=== PATIENT | female | born 1985 | race Two or more races ===

== ENCOUNTER 2016-05-26 20:42 | Emergency (ER) | payer MEDICARE, OTHER ==
[~2016-05-26] VITALS: Ht 165.1 cm; Wt 103.9 kg
--- NOTE | 2016-05-26 20:47 | NUR ---
Called for triage, no answer.
[2016-05-26 20:54] VITALS: BP 146/79
== END 2016-05-26 21:51 | disposition home or self-care (01) ==
LOC: ER 20:42
DX: J02.9 Acute pharyngitis, unspecified (principal); N94.89 Other specified conditions associated with female genital organs and menstrual cycle; F17.200 Nicotine dependence, unspecified, uncomplicated
CPT/HCPCS: 99281; A4606; Z7502; Z7610

== ENCOUNTER 2016-10-10 19:35 | Emergency (ER) | payer MEDICARE, OTHER ==
[~2016-10-10] VITALS: Ht 165.1 cm; Wt 57.6 kg
[2016-10-10 19:37] VITALS: BP 121/66
--- NOTE | 2016-10-10 19:49 | NUR ---
called [facility] dispatch to make report. cupola operator insulation #[id number] took report.
--- NOTE | 2016-10-10 20:10 | NUR ---
DR. LOPEZ AT BEDSIDE FOR EVAL.
--- NOTE | 2016-10-10 20:31 | NUR ---
Patient discharged to home in stable condition. Written and verbal after care instructions given. Patient verbalizes understanding of instruction. pt ambulatory with a steady gait.
== END 2016-10-10 20:32 | disposition home or self-care (01) ==
LOC: ER 19:37
DX: O9A.212 Injury, poisoning and certain other consequences of external causes complicating pregnancy, second trimester (principal); S40.812A Abrasion of left upper arm, initial encounter; F17.200 Nicotine dependence, unspecified, uncomplicated; Z3A.18 18 weeks gestation of pregnancy; Y04.0XXA Assault by unarmed brawl or fight, initial encounter; Y93.89 Activity, other specified; Y92.89 Other specified places as the place of occurrence of the external cause; Y99.9 Unspecified external cause status
CPT/HCPCS: 99284; A4606; Z7610

== ENCOUNTER 2016-12-27 10:03 | Emergency (ER) | payer MEDICARE, OTHER ==
[~2016-12-27] VITALS: Ht 165.1 cm; Wt 83.9 kg
[2016-12-27 11:52] VITALS: BP 134/77
== END 2016-12-27 11:53 | disposition home or self-care (01) ==
LOC: ER 10:09
DX: O26.893 Other specified pregnancy related conditions, third trimester (principal); J03.90 Acute tonsillitis, unspecified; F17.200 Nicotine dependence, unspecified, uncomplicated; Z3A.28 28 weeks gestation of pregnancy
CPT/HCPCS: 99283; A4606; Z7610

== ENCOUNTER 2017-03-21 16:53 | Emergency (ER) | payer MEDICARE, OTHER ==
[~2017-03-21] VITALS: Ht 165.1 cm; Wt 104.3 kg
[2017-03-21 16:57] VITALS: BP 163/102
== END 2017-03-21 17:36 | disposition home or self-care (01) ==
LOC: ER 16:56
DX: B34.9 Viral infection, unspecified (principal); F17.200 Nicotine dependence, unspecified, uncomplicated
CPT/HCPCS: 99281; A4606; Z7502; Z7610

== ENCOUNTER 2017-10-06 12:54 | Emergency (ER) | payer MEDICARE, OTHER ==
[~2017-10-06] VITALS: Ht 165.1 cm; Wt 103.0 kg
[2017-10-06 12:58] VITALS: BP 143/80
[2017-10-06] MEDS ORDERED: ACETAMINOPHEN ES 500 MG TABLET ONE (13:55)
[2017-10-06] MEDS: ACETAMINOPHEN 325 MG TABLET PO ONE (13:57)
--- NOTE | 2017-10-06 13:57 | NUR ---
radiology at bedside for r shoulder xray.
--- NOTE | 2017-10-06 14:00 | NUR ---
pt refused xray. franco cooper made aware.
--- NOTE | 2017-10-06 14:08 | NUR ---
pt to radiology for head and c spine ct scan via wheelchair.
--- NOTE | 2017-10-06 15:00 | NUR ---
Patient discharged to home in stable condition. Written and verbal after care instructions given. Patient verbalizes understanding of instruction.
== END 2017-10-06 15:00 | disposition home or self-care (01) ==
LOC: ER 12:55
DX: S09.8XXA Other specified injuries of head, initial encounter (principal); M54.2 Cervicalgia; M25.511 Pain in right shoulder; F17.200 Nicotine dependence, unspecified, uncomplicated; Y04.0XXA Assault by unarmed brawl or fight, initial encounter; Y93.89 Activity, other specified; Y92.89 Other specified places as the place of occurrence of the external cause; Y99.8 Other external cause status
CPT/HCPCS: 70450-TC; 72125-TC; A4606; Z7610

== ENCOUNTER 2017-11-23 09:57 | Emergency (ER) | payer MEDICARE, OTHER ==
[~2017-11-23] VITALS: Ht 165.1 cm; Wt 95.3 kg
--- NOTE | 2017-11-23 10:05 | NUR ---
PT BIB SELF, WHO COMPLAINT OF ABDOMINAL PAIN AND BLOODSTOOL. ALERT AND ORIENTED X 4, VERBALLY RESPONSIVE. ON ROOM AIR AND TOLERATED WELL. SKIN WARM AND WNL. BREATHING UNLABORED. KEPT COMFROTABLE IN BED. WILL CONTINUE TO MONITOR ACCORDINGLY.
--- NOTE | 2017-11-23 10:10 | NUR ---
DR. DAVIS AT BEDSIDE FOR EVAL.
[2017-11-23 11:46] LABS: BASOPHILS # (AUTO) 0.1 /CMM (0.0-0.2); BASOPHILS % (AUTO) 1.6 % (0.0-2.0); EOSINOPHILS % (AUTO) 3.8 % (0.0-6.0); HEMATOCRIT 38 % (33-45); HEMOGLOBIN 12.2 g/dL (11.5-14.8); LYMPHOCYTES # (AUTO) 2.5 /CMM (0.8-4.8); LYMPHOCYTES % (AUTO) 41.1 % (20.0-44.0); MEAN CORPUSCULAR HGB CONC 32 g/dl (31.0-36.0); MEAN CORPUSCULAR VOLUME 85 fL (82-100); MONOCYTES # (AUTO) 0.3 /CMM (0.1-1.30); MONOCYTES % (AUTO) 4.9 % (2.0-12.0); NEUTROPHILS % (AUTO) 48.6 % (43.0-81.0); PLATELET COUNT (AUTO) 210 /CMM (150-450); RDW COEFFICIENT OF VARIATION 13.2 (11.5-15.0); RED BLOOD CELL COUNT(AUTO) 4.47 MIL/uL (4.0-5.2); WHITE BLOOD COUNT (AUTO) 6.1 K/uL (4.3-11.0)
--- NOTE | 2017-11-23 12:39 | NUR ---
Patient discharged to home in stable condition. Written and verbal after care instructions given. Patient verbalizes understanding of instruction.IV removed. Catheter intact and site benign. Pressure and 4x4 applied to site. No bleeding noted.
[2017-11-23 12:41] VITALS: BP 125/55
== END 2017-11-23 12:46 | disposition home or self-care (01) ==
LOC: ER 10:00
DX: K62.5 Hemorrhage of anus and rectum (principal); F17.200 Nicotine dependence, unspecified, uncomplicated
CPT/HCPCS: 36415; 85025; 99283; A4606; Z7610

== ENCOUNTER 2018-06-28 22:55 | Emergency (ER) | payer MEDICARE, OTHER ==
[~2018-06-28] VITALS: Ht 165.1 cm; Wt 88.9 kg
[2018-06-28] MEDS ORDERED: LIDOCAINE /MPF 1% VIAL 5 ML VIAL ONE (23:13)
[2018-06-28] MEDS ORDERED: LIDOCAINE 1% INJ 50 ML MDV IJ ONE (23:30)
[2018-06-28] MEDS ORDERED: TDAP [DIPH/PERTUSSIS/TET] 0.5 ML VIAL IM ONE ×2 (23:30→23:44)
--- NOTE | 2018-06-28 23:57 | NUR ---
ASSUMED CARE OF PT FOR D/C PURPOSES ONLY. Patient discharged to home in stable condition. Written and verbal after care instructions given. Patient verbalizes understanding of instruction AND RX. PT REC'D A DRSG TO THE LT GROIN AND AMBULATED OUT WITH A STEADY GAIT. VSS
[2018-06-28 23:58] VITALS: BP 137/81
== END 2018-06-28 23:58 | disposition home or self-care (01) ==
LOC: ER 22:59
DX: L02.416 Cutaneous abscess of left lower limb (principal); L03.116 Cellulitis of left lower limb; F17.200 Nicotine dependence, unspecified, uncomplicated
CPT/HCPCS: 10060; 90471; 90715; 99283; A6402; J3490

== ENCOUNTER 2018-07-18 22:34 | Emergency (ER) | payer MEDICARE, OTHER ==
[~2018-07-18] VITALS: Ht 165.1 cm; Wt 88.5 kg
--- NOTE | 2018-07-18 22:38 | NUR ---
CALLED PT TO BE TRIAGED 3X, NO ANSWER
[2018-07-18 23:04] VITALS: BP 135/89
[2018-07-18] MEDS: IBUPROFEN 600 MG TABLET PO ONE (23:30)
[2018-07-18] MEDS ORDERED: IBUPROFEN 600 MG TABLET PO ONE (23:32)
== END 2018-07-18 23:59 | disposition home or self-care (01) ==
LOC: ER 22:35
DX: S16.1XXA Strain of muscle, fascia and tendon at neck level, initial encounter (principal); F17.200 Nicotine dependence, unspecified, uncomplicated; V49.59XA Passenger injured in collision with other motor vehicles in traffic accident, initial encounter; Y93.89 Activity, other specified; Y92.488 Other paved roadways as the place of occurrence of the external cause; Y99.8 Other external cause status

== ENCOUNTER 2018-12-19 18:41 | Emergency (ER) | payer MEDICARE, OTHER ==
[~2018-12-19] VITALS: Ht 165.1 cm; Wt 87.1 kg
--- NOTE | 2018-12-19 18:57 | NUR ---
URINE COLLECTED AND SENT TO LAB
[2018-12-19 19:25] LABS: BASOPHILS # (AUTO) 0.2 /CMM (0.0-0.2); BASOPHILS % (AUTO) 2.6 % (0.0-2.0); EOSINOPHILS % (AUTO) 1.4 % (0.0-6.0); HEMATOCRIT 36 % (33-45); HEMOGLOBIN 11.5 g/dL (11.5-14.8); LYMPHOCYTES # (AUTO) 2.5 /CMM (0.8-4.8); LYMPHOCYTES % (AUTO) 43.3 % (20.0-44.0); MEAN CORPUSCULAR HGB CONC 32 g/dl (31.0-36.0); MEAN CORPUSCULAR VOLUME 85 fL (82-100); MONOCYTES # (AUTO) 0.4 /CMM (0.1-1.30); MONOCYTES % (AUTO) 6.6 % (2.0-12.0); NEUTROPHILS # (AUTO) 2.7 /CMM (1.8-8.9); NEUTROPHILS % (AUTO) 46.1 % (43.0-81.0); PLATELET COUNT (AUTO) 206 /CMM (150-450); RED BLOOD CELL COUNT(AUTO) 4.19 MIL/uL (4.0-5.2); WHITE BLOOD COUNT (AUTO) 5.8 K/uL (4.3-11.0)
[2018-12-19 19:39] LABS: ALBUMIN 3.2 g/dL (3.4-5.0); BILIRUBIN,TOTAL 0.1 mg/dL (0.2-1.0); CALCIUM, SERUM 8.7 mg/dL (8.5-10.1); CREATININE 0.8 mg/dL (0.6-1.3); POTASSIUM 3.8 mmol/L (3.5-5.1); TOTAL PROTEIN, SERUM 6.7 g/dL (6.4-8.2)
[2018-12-19 19:41] LABS: APPEARANCE,URINE Clear (CLEAR); BILIRUBIN,URINE Negative (NEGATIVE); BLOOD, URINE Moderate Ery/uL (NEGATIVE); COLOR,URINE Yellow (YELLOW); KETONES,URINE Negative (NEGATIVE); LEUKOCYTE ESTERASE ,URINE Negative (NEGATIVE); NITRITE, URINE Negative (NEGATIVE); PH,URINE 6.5 (5.0-8.0); PROTEIN,URINE Negative (NEGATIVE); UGLUCOSE Negative (NEGATIVE); UROBILINOGEN,URINE 0.2 EU/dL (0.2)
[2018-12-19 20:00] LABS: BACTERIA,URINE Rare /HPF (None Seen); WBC,URINE 0-2 /HPF (0-3)
[2018-12-19 20:01] LABS: SQUAMOUS EPITHELIAL CELL,UR Few /HPF (None Seen)
--- NOTE | 2018-12-19 20:31 | NUR ---
Patient discharged to home in stable condition. Written and verbal after care instructions given. Patient verbalizes understanding of instruction.
[2018-12-19 20:32] VITALS: BP 127/52
== END 2018-12-19 21:00 | disposition home or self-care (01) ==
LOC: ER 18:50
DX: N88.8 Other specified noninflammatory disorders of cervix uteri (principal); N83.201 Unspecified ovarian cyst, right side; F17.200 Nicotine dependence, unspecified, uncomplicated
CPT/HCPCS: 36415; 76856-TC; 80053-TC; 81000-TC; 84703-TC; 85025-TC

== ENCOUNTER 2019-02-08 18:42 | Emergency (ER) | payer MEDICARE, OTHER ==
[~2019-02-08] VITALS: Ht 165.1 cm; Wt 83.9 kg
[2019-02-08] MEDS ORDERED: ACETAMINOPHEN 325 MG TABLET ONE (18:56)
[2019-02-08] MEDS ORDERED: ONDANSETRON 4 MG TAB.RAPDIS ONE (18:57)
[2019-02-08] MEDS ORDERED: ACETAMINOPHEN 325 MG TABLET PO ONE (19:00)
[2019-02-08] MEDS ORDERED: ONDANSETRON 4 MG TAB.RAPDIS SL ONE (19:00)
--- NOTE | 2019-02-08 19:06 | NUR ---
PT BIB C/O FEVER, COUGH, CHILLS + NAUSEA X 2 DAYS. PT AAOX4, BRATHING EVEN AND UNLABORED ON ROOM AIR W/ NAD NOTED. PT CONNECTED TO THE MONITOR AND POX
--- NOTE | 2019-02-08 19:56 | NUR ---
Patient discharged to home in stable condition. Rx and Written and verbal after care instructions given. Patient verbalizes understanding of instruction.
[2019-02-08 19:57] VITALS: BP 119/73
== END 2019-02-08 19:58 | disposition home or self-care (01) ==
LOC: ER 18:46
DX: J11.1 Influenza due to unidentified influenza virus with other respiratory manifestations (principal); F17.200 Nicotine dependence, unspecified, uncomplicated
CPT/HCPCS: 87804 ×2; 99283; Q0162

== ENCOUNTER 2019-03-15 01:57 | Emergency (ER) | payer MEDICARE, OTHER ==
[~2019-03-15] VITALS: Ht 165.1 cm; Wt 82.1 kg
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
--- NOTE | 2019-03-15 02:42 | NUR ---
PT TAKEN TO CT
--- NOTE | 2019-03-15 02:45 | NUR ---
PT BACK FROM CT
[2019-03-15] MEDS ORDERED: TDAP [DIPH/PERTUSSIS/TET] 0.5 ML VIAL IM ONE ×2 (02:46→03:00)
[2019-03-15] MEDS ORDERED: IBUPROFEN 400 MG TABLET ONE (02:46)
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
[2019-03-15] MEDS ORDERED: IBUPROFEN 400 MG TABLET PO ONE (03:00)
--- NOTE | 2019-03-15 03:21 | NUR ---
Patient discharged to home in stable condition. Written and verbal after care instructions given. Patient verbalizes understanding of instruction.
[2019-03-15 03:22] VITALS: BP 121/87
== END 2019-03-15 03:22 | disposition home or self-care (01) ==
LOC: ER 02:00
DX: S00.01XA Abrasion of scalp, initial encounter (principal); F17.200 Nicotine dependence, unspecified, uncomplicated; Y00.XXXA Assault by blunt object, initial encounter; Y93.89 Activity, other specified; Y92.89 Other specified places as the place of occurrence of the external cause; Y99.8 Other external cause status
CPT/HCPCS: 70450-TC; 70486-TC; 90715

== ENCOUNTER 2019-04-28 18:15 | Emergency (ER) | payer MEDICARE, OTHER ==
[~2019-04-28] VITALS: Ht 165.1 cm; Wt 82.6 kg
--- NOTE | 2019-04-28 18:22 | NUR ---
PT AMBULATORY TO ER BED 03. CONCERNED AFTER NOTICING BLOOD IN HER STOOL TWICE TODAY. PT DENIES ABDOMINL PAIN AND NAUSEA AND VOMITING. PT STATES TAKING UNKNOWN ANTIBIOTIC FOR AN ABCESS. GOWNED. VSS. AWAITING MD SHI.
--- NOTE | 2019-04-28 18:36 | NUR ---
BRYANNA NEWELL AT BEDSIDE FOR EVAL.
[2019-04-28 18:51] LABS: BASOPHILS % (AUTO) 0.5 % (0.0-2.0); EOSINOPHILS % (AUTO) 2.3 % (0.0-6.0); HEMATOCRIT 40 % (33-45); HEMOGLOBIN 12.7 g/dL (11.5-14.8); LYMPHOCYTES # (AUTO) 2.4 /CMM (0.8-4.8); LYMPHOCYTES % (AUTO) 51.4 % (20.0-44.0); MEAN CORPUSCULAR HGB CONC 32 g/dl (31.0-36.0); MEAN CORPUSCULAR VOLUME 84 fL (82-100); MONOCYTES # (AUTO) 0.4 /CMM (0.1-1.30); MONOCYTES % (AUTO) 8.7 % (2.0-12.0); NEUTROPHILS # (AUTO) 1.7 /CMM (1.8-8.9); NEUTROPHILS % (AUTO) 37.1 % (43.0-81.0); PLATELET COUNT (AUTO) 204 /CMM (150-450); RED BLOOD CELL COUNT(AUTO) 4.73 MIL/uL (4.0-5.2); WHITE BLOOD COUNT (AUTO) 4.6 K/uL (4.3-11.0)
[2019-04-28 19:01] LABS: CALCIUM, SERUM 9.1 mg/dL (8.5-10.1); CREATININE 0.7 mg/dL (0.6-1.3)
[2019-04-28 19:05] LABS: ALBUMIN 3.3 g/dL (3.4-5.0); BILIRUBIN,DIRECT 0.1 mg/dL (0.0-0.2); BILIRUBIN,TOTAL 0.3 mg/dL (0.2-1.0); TOTAL PROTEIN, SERUM 7.1 g/dL (6.4-8.2)
--- NOTE | 2019-04-28 19:25 | NUR ---
REPORT GIVEN TO ESPERANZA ROSE FOR THANIA.
[2019-04-28 19:28] LABS: OCCULT BLOOD STOOL NEGATIVE (NEGATIVE)
--- NOTE | 2019-04-28 19:45 | NUR ---
CALLED RAYMOND SINGH TO PICK PATIENT UP. Addendum: 04/28/19 at 1945 by STEVEN ETA 10MINUTES
[2019-04-28 20:03] VITALS: BP 138/92
--- NOTE | 2019-04-28 20:03 | NUR ---
IV removed. Catheter intact and site benign. Pressure and 4x4 applied to site. No bleeding noted. Patient discharged to home in stable condition. Written and verbal after care instructions given. Patient verbalizes understanding of instruction.
== END 2019-04-28 20:03 | disposition home or self-care (01) ==
LOC: ER 18:19
DX: K64.4 Residual hemorrhoidal skin tags (principal); F17.200 Nicotine dependence, unspecified, uncomplicated
CPT/HCPCS: 36415; 80048-TC; 80076-TC; 82272-TC; 85025-TC; 85730-TC

== ENCOUNTER 2020-05-07 15:20 | Emergency (ER) | payer MEDICARE, OTHER ==
[~2020-05-07] VITALS: Ht 165.1 cm; Wt 97.1 kg
--- NOTE | 2020-05-07 15:40 | NUR ---
c/o vaginal cyst getting bigger, 8/10 pain scale, just gave 23 days ago. Patient a/ox4, breathing even and unlabored, no sob noted. Needs attended.
[2020-05-07] MEDS ORDERED: LIDOCAINE 1%-EPI 1:100,000 20 ML VIAL ONE (17:08)
--- NOTE | 2020-05-07 17:10 | NUR ---
MEGAN NEWELL AT BEDSIDE FOR EVAL.
[2020-05-07] MEDS ORDERED: ONDANSETRON 4 MG TAB.RAPDIS ONE (17:12)
[2020-05-07] MEDS ORDERED: HYDROCODONE/APAP 10/325MG TABLET ONE (17:12)
--- NOTE | 2020-05-07 17:19 | NUR ---
I&D SET UP FOR PA.
[2020-05-07] MEDS ORDERED: LIDOCAINE 0.5%-EPI 1:200,000 50 ML VIAL TP ONE (17:30)
[2020-05-07] MEDS ORDERED: ONDANSETRON 4 MG TAB.RAPDIS SL ONE (17:30)
[2020-05-07] MEDS ORDERED: HYDROCODONE/APAP 10/325MG TABLET PO ONE (17:30)
[2020-05-07] MEDS ORDERED: SULF1TAB48 PO (18:17)
[2020-05-07] MEDS ORDERED: IBUP-1957 PO (18:17)
--- NOTE | 2020-05-07 18:28 | NUR ---
Patient discharged to home in stable condition. Written and verbal after care instructions given. Patient verbalizes understanding of instruction.
[2020-05-07 18:29] VITALS: BP 135/97
== END 2020-05-07 18:29 | disposition home or self-care (01) ==
LOC: ER 15:23
DX: N75.0 Cyst of Bartholin's gland (principal); F17.210 Nicotine dependence, cigarettes, uncomplicated; Z79.899 Other long term (current) drug therapy
CPT/HCPCS: 56405; 99284; 99406; A6403; A6407; J3490; Q0162

== ENCOUNTER 2020-08-26 23:58 | Emergency (ER) | payer MEDICARE, OTHER ==
[~2020-08-26] VITALS: Ht 165.1 cm; Wt 92.5 kg
[2020-08-26 23:58] VITALS: BP 153/87
[~2020-08-26 23:58] MED LIST: IBUP-1957 PO; SULF1TAB48 PO
[2020-08-27] MEDS ORDERED: LIDOCAINE 1%-EPI 1:100,000 20 ML VIAL ONE (00:28)
--- NOTE | 2020-08-27 00:40 | NUR ---
I&D WAS DONE BY AT BED SIDE, PT TOLERATED THE PROCEDURE WELL
[2020-08-27] MEDS ORDERED: CEPH500C2 PO (00:44)
--- NOTE | 2020-08-27 00:56 | NUR ---
Patient discharged to home in stable condition. Written and verbal after care instructions given. Patient verbalizes understanding of instruction.
== END 2020-08-27 00:57 | disposition home or self-care (01) ==
LOC: ER 08-27 00:01
DX: L02.416 Cutaneous abscess of left lower limb (principal); Z79.899 Other long term (current) drug therapy
CPT/HCPCS: 10060; 99284; J3490

== ENCOUNTER 2020-10-02 03:19 | Emergency (ER) | payer MEDICARE, OTHER ==
[~2020-10-02] VITALS: Ht 165.1 cm; Wt 90.7 kg
[~2020-10-02 03:19] MED LIST changes: +CEPH500C2 PO
--- NOTE | 2020-10-02 03:27 | NUR ---
called to triage, no answer
--- NOTE | 2020-10-02 03:45 | NUR ---
pt bibself c/o swollen rt ring finger s/p taking off fake nails and reported unable to finish ATB dose for left inner thigh abscess with I&D. pt alert and oriented x4 ambulatory with non labored breathing.
[2020-10-02] MEDS ORDERED: SULF1TAB48 PO (03:54)
[2020-10-02] MEDS ORDERED: FLUC200T PO (03:54)
[2020-10-02] MEDS ORDERED: CEPH500T PO (03:54)
--- NOTE | 2020-10-02 04:04 | NUR ---
Patient discharged to home in stable condition. Written and verbal after care instructions given. Patient verbalizes understanding of instruction. RX given.
[2020-10-02 04:06] VITALS: BP 130/84
== END 2020-10-02 04:06 | disposition home or self-care (01) ==
LOC: ER 03:30
DX: L03.011 Cellulitis of right finger (principal); F17.200 Nicotine dependence, unspecified, uncomplicated; Z79.899 Other long term (current) drug therapy

== ENCOUNTER 2020-12-26 14:46 | Emergency (ER) | payer MEDICARE, OTHER ==
[~2020-12-26] VITALS: Ht 165.1 cm; Wt 90.7 kg
[~2020-12-26 14:46] MED LIST changes: +CEPH500T PO; +FLUC200T PO
--- NOTE | 2020-12-26 15:09 | NUR ---
To ER bed 6, saw blood when wiped today, went to the restroom in ER but saw no blood anymore, gave 8 months ago, aaox3, breathinge even and non labored, connected to monitor
[2020-12-26] MEDS ORDERED: IV NS 0.9% 1,000 ML BAG IV ONE (16:00)
--- NOTE | 2020-12-26 16:00 | NUR ---
UNABLE TO PROVIDE URINE AT THIS TIME
[2020-12-26 16:24] LABS: BASOPHILS % (AUTO) 0.6 % (0.0-2.0); EOSINOPHILS % (AUTO) 2.7 % (0.0-6.0); HEMATOCRIT 38 % (33-45); HEMOGLOBIN 12.3 g/dL (11.5-14.8); LYMPHOCYTES # (AUTO) 2.7 K/uL (0.8-4.8); MEAN CORPUSCULAR HGB CONC 33 g/dl (31.0-36.0); MEAN CORPUSCULAR VOLUME 84 fL (82-100); MONOCYTES # (AUTO) 0.3 K/uL (0.1-1.30); MONOCYTES % (AUTO) 4.7 % (2.0-12.0); NEUTROPHILS # (AUTO) 2.5 K/uL (1.8-8.9); PLATELET COUNT (AUTO) 222 K/uL (150-450); RED BLOOD CELL COUNT(AUTO) 4.51 MIL/uL (4.0-5.2); WHITE BLOOD COUNT (AUTO) 5.7 K/uL (4.3-11.0)
[2020-12-26 16:37] LABS: CALCIUM, SERUM 8.8 mg/dL (8.5-10.1); CREATININE 0.7 mg/dL (0.6-1.3); POTASSIUM 4.2 mmol/L (3.5-5.1)
[2020-12-26 16:54] LABS: ALBUMIN 3.1 g/dL (3.4-5.0); BILIRUBIN,TOTAL 0.1 mg/dL (0.2-1.0); TOTAL PROTEIN, SERUM 7.3 g/dL (6.4-8.2)
--- NOTE | 2020-12-26 17:01 | NUR ---
URINE COLLECTED AND SENT TO LAB
[2020-12-26 17:19] LABS: BILIRUBIN,URINE NEGATIVE (NEGATIVE); COLOR,URINE YELLOW (YELLOW); LEUKOCYTE ESTERASE ,URINE NEGATIVE (NEGATIVE); NITRITE, URINE NEGATIVE (NEGATIVE); PROTEIN,URINE NEGATIVE (NEGATIVE); UGLUCOSE NEGATIVE (NEGATIVE); UROBILINOGEN,URINE 0.2 EU/dL (0.2)
[2020-12-26] MEDS ORDERED: IBUP-1955 PO (17:46)
--- NOTE | 2020-12-26 17:56 | NUR ---
IV removed. Catheter intact and site benign. Pressure and 4x4 applied to site. No bleeding noted.Patient discharged to home in stable condition. Written and verbal after care instructions given. Patient verbalizes understanding of instruction.
[2020-12-26 17:58] VITALS: BP 129/75
== END 2020-12-26 17:58 | disposition home or self-care (01) ==
LOC: ER 14:51
DX: N83.202 Unspecified ovarian cyst, left side (principal); F17.200 Nicotine dependence, unspecified, uncomplicated; Z79.899 Other long term (current) drug therapy
CPT/HCPCS: 36415; 76856; 80048; 80076; 81003; 84702; 85025; 85730; 96360; 99284; J7030

== ENCOUNTER 2021-03-12 00:23 | Emergency (ER) | payer MEDICARE, OTHER ==
[~2021-03-12] VITALS: Ht 165.1 cm; Wt 87.5 kg
[~2021-03-12 00:23] MED LIST changes: +IBUP-1955 PO
--- NOTE | 2021-03-12 01:01 | NUR ---
CALLED FOR TRIAGE NOT IN WAITING ROOM.
[2021-03-12] MEDS ORDERED: TDAP [DIPH/PERTUSSIS/TET] 0.5 ML VIAL IM ONE ×2 (01:35→02:00)
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
--- NOTE | 2021-03-12 02:20 | NUR ---
TAKEN TO CT
--- NOTE | 2021-03-12 02:23 | NUR ---
[employer] AT BEDSIDE
--- NOTE | 2021-03-12 03:15 | NUR ---
AT BED SIDE FOR LACERATION CARE
[2021-03-12] MEDS ORDERED: LIDOCAINE HCL/MPF 1% 30 ML VIAL IJ ONE (03:18)
--- NOTE | 2021-03-12 03:30 | NUR ---
Patient discharged to home in stable condition. Written and verbal after care instructions given. Patient verbalizes understanding of instruction. PT ambulatory with a steady gait
[2021-03-12 03:32] VITALS: BP 140/85
== END 2021-03-12 03:30 | disposition home or self-care (01) ==
LOC: ER 00:33
DX: S01.01XA Laceration without foreign body of scalp, initial encounter (principal); F17.200 Nicotine dependence, unspecified, uncomplicated; Z79.899 Other long term (current) drug therapy; Y08.89XA Assault by other specified means, initial encounter; Y93.89 Activity, other specified; Y92.89 Other specified places as the place of occurrence of the external cause; Y99.8 Other external cause status
CPT/HCPCS: 12001; 70450; 90471; 90715; 99284; J3490

== ENCOUNTER 2021-04-01 04:48 | Emergency (ER) | payer MEDICARE, OTHER ==
[~2021-04-01] VITALS: Ht 165.1 cm; Wt 83.0 kg
[2021-04-01 05:13] VITALS: BP 128/87
--- NOTE | 2021-04-01 10:15 | NUR ---
MOVED TO ED BED 16 FOR PELVIC EXAM.
[2021-04-01] MEDS ORDERED: LIDOCAINE MPF 1%-EPI 1:200,000 30 ML VIAL IJ ONE (10:56)
[2021-04-01] MEDS ORDERED: LIDOCAINE 1%-EPI 1:100,000 50 ML VIAL IJ ONE (11:00)
--- NOTE | 2021-04-01 11:05 | NUR ---
WET MOUNT AND GC CULTURE SWABS DONE BY DR OVALLES AND SENT TO THE LAB
[2021-04-01] MEDS ORDERED: KETOROLAC TROMETHAMINE INJ 60 MG/2 ML VIAL IM ONE (11:30)
[2021-04-01] MEDS ORDERED: CEFTRIAXONE 500 MG VIAL IM ONE (11:30)
--- NOTE | 2021-04-01 11:51 | NUR ---
URINE COLLECTED AND SENT TO THE LAB
[2021-04-01] MEDS ORDERED: DOXY-326 PO (12:05)
[2021-04-01] MEDS ORDERED: CEFTRIAXONE 500 MG VIAL ONE (12:05)
[2021-04-01] MEDS ORDERED: KETOROLAC TROMETHAMINE INJ 30 MG/ML VIAL ONE (12:05)
[2021-04-01] MEDS ORDERED: LIDOCAINE /MPF 1% VIAL 5 ML VIAL ONE (12:06)
[2021-04-01 12:08] LABS: BILIRUBIN,URINE NEGATIVE (NEGATIVE); COLOR,URINE YELLOW (YELLOW); LEUKOCYTE ESTERASE ,URINE NEGATIVE (NEGATIVE); NITRITE, URINE NEGATIVE (NEGATIVE); PROTEIN,URINE NEGATIVE (NEGATIVE); UGLUCOSE NEGATIVE (NEGATIVE); UROBILINOGEN,URINE 0.2 EU/dL (0.2)
[2021-04-01] MEDS ORDERED: MICO1KIT10 VG (12:08)
--- NOTE | 2021-04-01 12:21 | NUR ---
Patient discharged to home in stable condition. Written and verbal after care instructions given. Patient verbalizes understanding of instruction.
== END 2021-04-01 12:26 | disposition home or self-care (01) ==
LOC: ER 04:52
DX: S01.01XD Laceration without foreign body of scalp, subsequent encounter (principal); L02.416 Cutaneous abscess of left lower limb; N89.8 Other specified noninflammatory disorders of vagina; F17.200 Nicotine dependence, unspecified, uncomplicated; Z79.1 Long term (current) use of non-steroidal anti-inflammatories (NSAID); Z79.899 Other long term (current) drug therapy; X58.XXXD Exposure to other specified factors, subsequent encounter
CPT/HCPCS: 10060; 81003; 84703; 87081; 87210; 87491; 87591; 96372; 99283; A6403 ×2; J0696; J1885; J3490 ×3

== ENCOUNTER 2021-05-15 15:36 | Emergency (ER) | payer MEDICARE, OTHER ==
[~2021-05-15] VITALS: Ht 165.1 cm; Wt 88.5 kg
[~2021-05-15 15:36] MED LIST changes: +DOXY-326 PO; +MICO1KIT10 VG
[2021-05-15 15:40] VITALS: BP 142/74
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
--- NOTE | 2021-05-15 16:16 | NUR ---
PATIENT CANNOT PROVIDE URINE SAMPLES AT THE MOMENT
[2021-05-15] MEDS ORDERED: KETOROLAC TROMETHAMINE INJ 60 MG/2 ML VIAL IM ONE (16:30)
[2021-05-15] MEDS ORDERED: KETOROLAC TROMETHAMINE INJ 30 MG/ML VIAL ONE (17:43)
[2021-05-15] MEDS ORDERED: NAPR-1192 PO (19:18)
[2021-05-15] MEDS ORDERED: CEPH250C PO (19:18)
== END 2021-05-15 19:27 | disposition home or self-care (01) ==
LOC: ER 15:48
DX: S20.212A Contusion of left front wall of thorax, initial encounter (principal); Z79.899 Other long term (current) drug therapy; W01.0XXA Fall on same level from slipping, tripping and stumbling without subsequent striking against object, initial encounter; Y93.89 Activity, other specified; Y92.89 Other specified places as the place of occurrence of the external cause; Y99.8 Other external cause status
CPT/HCPCS: 71100; 96372; 99283; J1885

== ENCOUNTER 2021-06-10 20:02 | Emergency (ER) | payer MEDICARE, OTHER ==
[~2021-06-10] VITALS: Ht 165.1 cm; Wt 81.6 kg
[~2021-06-10 20:02] MED LIST changes: +CEPH250C PO; +NAPR-1192 PO
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
[2021-06-10] MEDS ORDERED: ONDANSETRON HCL/PF 4 MG/2 ML VIAL ONE (20:44)
[2021-06-10] MEDS ORDERED: IBUPROFEN 400 MG TABLET ONE (20:44)
[2021-06-10] MEDS ORDERED: ONDANSETRON 4 MG TAB.RAPDIS ONE (20:49)
[2021-06-10] MEDS: ONDANSETRON HCL 4 MG/5 ML SOLUTION PO ONE (20:50)
[2021-06-10] MEDS: IBUPROFEN 400 MG TABLET PO ONE (20:50)
[2021-06-10] MEDS ORDERED: ONDANSETRON HCL/PF 4 MG/2 ML VIAL IM ONE (21:00)
[2021-06-10] MEDS ORDERED: IBUP-1957 PO (21:56)
[2021-06-10] MEDS ORDERED: ONDA4TAB5 PO (21:56)
--- NOTE | 2021-06-10 22:44 | NUR ---
Patient discharged to home in stable condition. Written and verbal after care instructions given. Patient verbalizes understanding of instruction. Denies having any pain.
[2021-06-10 22:45] VITALS: BP 124/76
== END 2021-06-10 22:46 | disposition home or self-care (01) ==
LOC: ER 20:09
DX: M79.10 Myalgia, unspecified site (principal); R11.2 Nausea with vomiting, unspecified; F17.200 Nicotine dependence, unspecified, uncomplicated; Z79.899 Other long term (current) drug therapy
CPT/HCPCS: 71100; 72050; 72100; 99284; J2405; Q0162

== ENCOUNTER 2021-06-18 02:34 | Emergency (ER) | payer MEDICARE, OTHER ==
[~2021-06-18] VITALS: Ht 165.1 cm; Wt 68.0 kg
[~2021-06-18 02:34] MED LIST changes: +ONDA4TAB5 PO
[2021-06-18] MEDS ORDERED: KETOROLAC TROMETHAMINE 15 MG/ML VIAL ONE (03:15)
[2021-06-18 03:22] LABS: BASOPHILS % (AUTO) 0.6 % (0.0-2.0); EOSINOPHILS % (AUTO) 2.9 % (0.0-6.0); HEMATOCRIT 37 % (33-45); LYMPHOCYTES # (AUTO) 3.4 K/uL (0.8-4.8); LYMPHOCYTES % (AUTO) 52.6 % (20.0-44.0); MEAN CORPUSCULAR HGB CONC 32 g/dl (31.0-36.0); MEAN CORPUSCULAR VOLUME 85 fL (82-100); MONOCYTES # (AUTO) 0.3 K/uL (0.1-1.30); MONOCYTES % (AUTO) 5.2 % (2.0-12.0); NEUTROPHILS # (AUTO) 2.5 K/uL (1.8-8.9); NEUTROPHILS % (AUTO) 38.7 % (43.0-81.0); PLATELET COUNT (AUTO) 215 K/uL (150-450); RED BLOOD CELL COUNT(AUTO) 4.36 MIL/uL (4.0-5.2); WHITE BLOOD COUNT (AUTO) 6.5 K/uL (4.3-11.0)
[2021-06-18] MEDS ORDERED: KETOROLAC TROMETHAMINE INJ 30 MG/ML VIAL IV ONE (03:30)
[2021-06-18 03:37] LABS: ALANINE AMINOTRANSFERASE 24 U/L (12-78); ALBUMIN 3.2 g/dL (3.4-5.0); ALKALINE PHOSPHATASE 71 U/L (46-116); ASPARTATE AMINOTRANSFERASE 14 U/L (15-37); BILIRUBIN,DIRECT 0.1 mg/dL (0.0-0.2); BILIRUBIN,TOTAL 0.1 mg/dL (0.2-1.0); CALCIUM, SERUM 8.6 mg/dL (8.5-10.1); CARBON DIOXIDE 25 mmol/L (21-32); CHLORIDE 110 mmol/L (98-107); CREATININE 0.6 mg/dL (0.6-1.3); GLUCOSE 90 mg/dL (74-106); POTASSIUM 3.5 mmol/L (3.5-5.1); SODIUM SERUM 142 mmol/L (136-145); UREA NITROGEN, BLOOD 7 mg/dL (7-18)
[2021-06-18 03:40] LABS: ACETAMINOPHEN < 2 ug/ml (10-30)
[2021-06-18] MEDS ORDERED: PENI500T PO (04:05)
[2021-06-18] MEDS ORDERED: KETO10TA2 PO (04:05)
[2021-06-18 04:14] VITALS: BP 125/81
== END 2021-06-18 04:25 | disposition home or self-care (01) ==
LOC: ER 02:37
DX: K04.7 Periapical abscess without sinus (principal); T39.1X1A Poisoning by 4-Aminophenol derivatives, accidental (unintentional), initial encounter; F17.200 Nicotine dependence, unspecified, uncomplicated; Z79.899 Other long term (current) drug therapy; Y92.89 Other specified places as the place of occurrence of the external cause
CPT/HCPCS: 36415; 80048; 80076; 80143; 80179; 85025; 85610; 85730; 96374; 99283; J1885

== ENCOUNTER 2022-06-08 16:59 | Emergency (ER) | payer MEDICARE, OTHER ==
[~2022-06-08] VITALS: Ht 165.1 cm; Wt 79.8 kg
[~2022-06-08 16:59] MED LIST changes: +KETO10TA2 PO; +PENI500T PO
--- NOTE | 2022-06-08 19:11 | NUR ---
PT IN ROOM 6, BREATHING ON ROOM AIR NO DISTRESS NOTED ON ASSESSMENT. C/O: BODY PAIN AND SORE THROAT UNABLE TO EAT SOLID FOOD FOR 3 DAYS THROWS UP WHEN SHE TRIES. PT IS AFEBRIAL, VITAL WNL. IN BED LOCKED AND IN LOWEST POSITION.
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
[2022-06-08] MEDS ORDERED: AMOX875T2 PO (20:26)
[2022-06-08 20:41] VITALS: BP 110/76
== END 2022-06-08 20:42 | disposition home or self-care (01) ==
LOC: ER 17:08
DX: J02.0 Streptococcal pharyngitis (principal); R59.9 Enlarged lymph nodes, unspecified; F17.200 Nicotine dependence, unspecified, uncomplicated; Z79.899 Other long term (current) drug therapy
CPT/HCPCS: 86403-TC

== ENCOUNTER 2022-12-09 21:15 | Emergency (ER) | payer MEDICARE, OTHER ==
[~2022-12-09] VITALS: Ht 165.1 cm; Wt 78.0 kg
[~2022-12-09 21:15] MED LIST changes: +AMOX875T2 PO
[2022-12-09] MEDS ORDERED: KETOROLAC TROMETHAMINE INJ 30 MG/ML VIAL IV ONE (23:00)
[2022-12-09] MEDS ORDERED: IV NS 0.9% 1,000 ML BAG IV ONE (23:00)
[2022-12-09] MEDS ORDERED: ONDANSETRON HCL/PF 4 MG/2 ML VIAL IVP ONE (23:00)
[2022-12-09] MEDS ORDERED: ONDANSETRON HCL/PF 4 MG/2 ML VIAL ONE (23:01)
[2022-12-09] MEDS ORDERED: KETOROLAC TROMETHAMINE INJ 30 MG/ML VIAL ONE (23:02)
[2022-12-09 23:29] LABS: APPEARANCE,URINE CLEAR (CLEAR); BILIRUBIN,URINE NEGATIVE (NEGATIVE); BLOOD, URINE NEGATIVE Ery/uL (NEGATIVE); COLOR,URINE YELLOW (YELLOW); KETONES,URINE NEGATIVE (NEGATIVE); LEUKOCYTE ESTERASE ,URINE NEGATIVE (NEGATIVE); NITRITE, URINE NEGATIVE (NEGATIVE); PH,URINE 5.5 (5.0-8.0); PROTEIN,URINE NEGATIVE (NEGATIVE); UGLUCOSE NEGATIVE (NEGATIVE)
[2022-12-09 23:38] LABS: PREGNANCY TEST URINE QUAL POSITIVE (NEGATIVE)
[2022-12-09] MEDS ORDERED: ONDA4TAB5 PO (23:43)
[2022-12-10 00:35] VITALS: BP 115/75; TEMP 98.6; O2SAT 100
== END 2022-12-10 00:35 | disposition home or self-care (01) ==
LOC: ER 21:19
DX: O26.891 Other specified pregnancy related conditions, first trimester (principal); R51.9 Headache, unspecified; O21.9 Vomiting of pregnancy, unspecified; F17.200 Nicotine dependence, unspecified, uncomplicated; Z20.822 Contact with and (suspected) exposure to COVID-19; Z79.899 Other long term (current) drug therapy
CPT/HCPCS: 84703-TC; C9803; J1885; J2405; J7030

== ENCOUNTER 2023-02-01 01:28 | Emergency (ER) | payer MEDICARE, OTHER ==
[~2023-02-01] VITALS: Ht 165.1 cm; Wt 78.0 kg
[2023-02-01 02:23] VITALS: BP 122/76; TEMP 98.1; O2SAT 99
[2023-02-01 02:54] LABS: BASOPHILS # (AUTO) 0.1 K/uL (0.0-0.2); BASOPHILS % (AUTO) 0.7 % (0.0-2.0); EOSINOPHILS # (AUTO) 0.1 K/uL (0.0-0.7); EOSINOPHILS % (AUTO) 1.9 % (0.0-6.0); HEMATOCRIT 33 % (33-45); HEMOGLOBIN 10.8 g/dL (11.5-14.8); LYMPHOCYTES # (AUTO) 2.9 K/uL (0.8-4.8); LYMPHOCYTES % (AUTO) 38.5 % (20.0-44.0); MEAN CORPUSCULAR HEMOGLOBIN 28 PG (26.0-33.0); MEAN CORPUSCULAR HGB CONC 33 g/dl (31.0-36.0); MEAN CORPUSCULAR VOLUME 84 fL (82-100); MONOCYTES # (AUTO) 0.4 K/uL (0.1-1.30); MONOCYTES % (AUTO) 4.9 % (2.0-12.0); NEUTROPHILS # (AUTO) 4.1 K/uL (1.8-8.9); PLATELET COUNT (AUTO) 205 K/uL (150-450); RED BLOOD CELL COUNT(AUTO) 3.86 MIL/uL (4.0-5.2); RED CELL DISTRIBUTION WIDTH 14.4 % (11.5-15.0); WHITE BLOOD COUNT (AUTO) 7.5 K/uL (4.3-11.0)
[2023-02-01 03:03] LABS: CALCIUM, SERUM 8.7 mg/dL (8.5-10.1); CREATININE 0.5 mg/dL (0.6-1.3); POTASSIUM 3.5 mmol/L (3.5-5.1)
[2023-02-01 03:30] LABS: ALBUMIN 2.9 g/dL (3.4-5.0); BILIRUBIN,TOTAL 0.1 mg/dL (0.2-1.0)
== END 2023-02-01 06:26 | disposition home or self-care (01) ==
LOC: ER 01:28
DX: O26.891 Other specified pregnancy related conditions, first trimester (principal); R10.9 Unspecified abdominal pain; R10.2 Pelvic and perineal pain; F17.200 Nicotine dependence, unspecified, uncomplicated; Z79.899 Other long term (current) drug therapy; Z3A.13 13 weeks gestation of pregnancy
CPT/HCPCS: 36415; 76805-TC; 80053-TC; 84702-TC; 85025-TC

== ENCOUNTER 2023-03-23 22:33 | Emergency (ER) | payer MEDICARE, OTHER ==
[~2023-03-23] VITALS: Ht 165.1 cm; Wt 78.0 kg
[2023-03-23 22:57] VITALS: TEMP 98
[2023-03-23] MEDS ORDERED: ACETAMINOPHEN ES 500 MG TABLET ONE (23:24)
[2023-03-23] MEDS: IV NS 0.9% 1,000 ML BAG IV ONE (23:31)
[2023-03-23] MEDS: ACETAMINOPHEN ES 500 MG TABLET PO ONE (23:31)
[2023-03-23 23:55] LABS: BASOPHILS # (AUTO) 0.2 K/uL (0.0-0.2); BASOPHILS % (AUTO) 2.2 % (0.0-2.0); EOSINOPHILS # (AUTO) 0.2 K/uL (0.0-0.7); EOSINOPHILS % (AUTO) 2.6 % (0.0-6.0); HEMATOCRIT 30 % (33-45); HEMOGLOBIN 10.2 g/dL (11.5-14.8); LYMPHOCYTES # (AUTO) 2.2 K/uL (0.8-4.8); LYMPHOCYTES % (AUTO) 25.2 % (20.0-44.0); MEAN CORPUSCULAR HEMOGLOBIN 29 PG (26.0-33.0); MEAN CORPUSCULAR HGB CONC 34 g/dl (31.0-36.0); MEAN CORPUSCULAR VOLUME 86 fL (82-100); MONOCYTES # (AUTO) 0.5 K/uL (0.1-1.30); MONOCYTES % (AUTO) 6.2 % (2.0-12.0); NEUTROPHILS # (AUTO) 5.5 K/uL (1.8-8.9); NEUTROPHILS % (AUTO) 63.8 % (43.0-81.0); PLATELET COUNT (AUTO) 205 K/uL (150-450); RED BLOOD CELL COUNT(AUTO) 3.54 MIL/uL (4.0-5.2); RED CELL DISTRIBUTION WIDTH 14.3 % (11.5-15.0); WHITE BLOOD COUNT (AUTO) 8.6 K/uL (4.3-11.0)
[2023-03-24 00:09] LABS: ALBUMIN 2.7 g/dL (3.4-5.0); BILIRUBIN,TOTAL 0.1 mg/dL (0.2-1.0); CALCIUM, SERUM 8.8 mg/dL (8.5-10.1); CREATININE 0.6 mg/dL (0.6-1.3); POTASSIUM 3.5 mmol/L (3.5-5.1); TOTAL PROTEIN, SERUM 6.4 g/dL (6.4-8.2)
[2023-03-24 02:08] LABS: APPEARANCE,URINE CLEAR (CLEAR); BILIRUBIN,URINE NEGATIVE (NEGATIVE); BLOOD, URINE NEGATIVE Ery/uL (NEGATIVE); COLOR,URINE YELLOW (YELLOW); KETONES,URINE NEGATIVE (NEGATIVE); LEUKOCYTE ESTERASE ,URINE NEGATIVE (NEGATIVE); NITRITE, URINE NEGATIVE (NEGATIVE); PROTEIN,URINE NEGATIVE (NEGATIVE); UGLUCOSE NEGATIVE (NEGATIVE); UROBILINOGEN,URINE 0.2 EU/dL (0.2)
[2023-03-24 02:36] VITALS: BP 141/86; O2SAT 98
== END 2023-03-24 02:37 | disposition home or self-care (01) ==
LOC: ER 22:46
DX: O26.892 Other specified pregnancy related conditions, second trimester (principal); R10.2 Pelvic and perineal pain; R10.32 Left lower quadrant pain; F17.200 Nicotine dependence, unspecified, uncomplicated; Z3A.20 20 weeks gestation of pregnancy; V43.52XA Car driver injured in collision with other type car in traffic accident, initial encounter; Y93.89 Activity, other specified; Y92.89 Other specified places as the place of occurrence of the external cause; Y99.8 Other external cause status
CPT/HCPCS: 36415; 76805-TC; 80048-TC; 80076-TC; 85025-TC; 86850-TC; J7030

== ENCOUNTER 2023-04-23 11:45 | Emergency (ER) | payer MEDICARE, OTHER ==
[~2023-04-23] VITALS: Ht 165.1 cm; Wt 87.5 kg
[2023-04-23 12:39] VITALS: BP 131/79; TEMP 98.2; O2SAT 98
== END 2023-04-23 12:39 | disposition home or self-care (01) ==
LOC: ER 11:45
DX: M79.641 Pain in right hand (principal); F17.200 Nicotine dependence, unspecified, uncomplicated; Z79.899 Other long term (current) drug therapy

== ENCOUNTER → 2023-05-27 | Emergency (ER) | payer MEDICARE, OTHER ==
[~2023-05-27] VITALS: Ht 165.1 cm; Wt 90.7 kg
[2023-05-27 10:14] VITALS: BP 121/73; TEMP 98.6; O2SAT 98
[2023-05-27 10:39] LABS: APPEARANCE,URINE Clear (CLEAR); BILIRUBIN,URINE Negative (NEGATIVE); BLOOD, URINE Negative Ery/uL (NEGATIVE); COLOR,URINE YELLOW (YELLOW); KETONES,URINE Negative (NEGATIVE); LEUKOCYTE ESTERASE ,URINE Negative (NEGATIVE); NITRITE, URINE Negative (NEGATIVE); PROTEIN,URINE Negative (NEGATIVE); UGLUCOSE Negative (NEGATIVE); UROBILINOGEN,URINE 0.2 EU/dL (0.2)
[2023-05-28 18:11] LABS: CHLAMYDIA TRACHOMATIS NAA Negative (Negative); NEISSERIA GONORRHOEAE NAA Negative (Negative)
== END | disposition home or self-care (01) ==
LOC: ER 09:45
DX: O23.593 Infection of other part of genital tract in pregnancy, third trimester (principal); N89.8 Other specified noninflammatory disorders of vagina; F17.200 Nicotine dependence, unspecified, uncomplicated; Z3A.29 29 weeks gestation of pregnancy
CPT/HCPCS: 99283; 81003; 87210; 87491; 87591; A6403

== ENCOUNTER 2023-12-16 11:42 | Emergency (ER) | payer MEDICARE, OTHER | END 2023-12-16 12:38 | disposition left against medical advice (07) | LOC: ER 12:07 | DX: L72.9 Follicular cyst of the skin and subcutaneous tissue, unspecified (principal); Z53.21 Procedure and treatment not carried out due to patient leaving prior to being seen by health care provider ==